=== PATIENT | male | born 1975 | race Caucasian/White ===

== ENCOUNTER 2016-05-06 14:23 | Emergency (ER) | payer OTHER ==
[2016-05-06 14:29] VITALS: BP 137/91
[2016-05-06] MEDS ORDERED: Tetracaine 0.5% OPTH.SOL 15ML* BTL ONE (14:33)
[2016-05-06] MEDS ORDERED: BSS OPTH.SOL* BTL ONE (14:33)
[2016-05-06] MEDS ORDERED: Fluorescein Sodium TOPICAL* 1 MG TEST ONE (14:33)
--- NOTE | 2016-05-06 15:14 | UC ---
Eye Complaint HPI - HPI Summary HPI Summary: 40 MINUTES AGO WAS GRINDING METAL, WITH SAFETY GLASSES ON AND A SMALL PIECE OF SHEET METAL GOT INTO RIGHT EYE. - History of Current Complaint Chief Complaint: UCEye Stated Complaint: METAL SHAVING IN EYE Time Seen by Provider: 05/06/16 14:26 Hx Obtained From: Patient Onset/Duration: Sudden Onset, Lasting Minutes, Still Present Timing: Constant Severity Initially: Moderate Severity Currently: Moderate Location of Injury: Conjunctiva, Other - [place] RIGHT Character: Dull, Foreign Body Sensation Aggravating Factor(s): Light, Blinking Alleviating Factor(s): Nothing Associated Signs And Symptoms: Positive: Photophobia, Drainage (Clear) Related History: Foreign Body - Risk Factors Penetrating Injury Risk Factor: Grinding Globe Rupture Risk Factors: Negative Acute Glaucoma Risk Factors: Negative Optic Artery Occlusion Risk Factors: Negative - Allergies/Home Medications Allergies/Adverse Reactions: Allergies Allergy/AdvReac Type Severity Reaction Status Date / Time No Known Allergies Allergy Verified 05/06/16 14:28 Home Medications: Home Medications Esomeprazole Magnesium [Nexium] 40 mg PO 05/06/16 [History] PMH/Surg Hx/FS Hx/Imm Hx Previously Healthy: Yes Endocrine History Of: Denies: Diabetes, Thyroid Disease Cardiovascular History Of: Denies: Cardiac Disorders, Hypertension Respiratory History Of: Denies: COPD, Asthma GI/ History Of: Denies: Ulcer - Surgical History Surgical History: None - Family History Known Family History: Negative: Blood Disorder - Social History Occupation: Employed Full-time Lives: With Family Alcohol Use: Rare Substance Use Type: None Smoking Status (MU): Heavy Every Day Tobacco Smoker Cessation Counseling: Patient Advised to Stop Review of Systems Constitutional: Negative Skin: Negative Eyes: Drainage, Eye Redness, Other - FB SENSATION RIGHT EYE ENT: Negative Respiratory: Negative Cardiovascular: Negative Gastrointestinal: Negative Genitourinary: Negative Motor: Negative Neurovascular: Negative Musculoskeletal: Negative Neurological: Negative Psychological: Negative All Other Systems Reviewed And Are Negative: Yes Physical Exam Triage Information Reviewed: Yes Appearance: Well-Appearing, No Pain Distress, Well-Nourished Vital Signs: Initial Vital Signs Temp 98.1 F 05/06/16 14:26 Pulse 89 05/06/16 14:26 Resp 18 05/06/16 14:26 BP 137/91 05/06/16 14:26 Pulse Ox 96 05/06/16 14:26 Vital Signs Reviewed: Yes Eyes: Positive: Other: - FB (SMALL METAL SPECK) REMOVED USING SWAB ; POSITIVE FLUORESCEIN UPTAKE FROM [facility]ENTER OF [place] TO 6OCLOCK. ENT Exam: Normal ENT: Positive: Normal ENT inspection, Hearing grossly normal, Pharynx normal, TMs normal Dental Exam: Normal Neck exam: Normal Neck: Positive: Supple, Nontender, No Lymphadenopathy Respiratory Exam: Normal Respiratory: Positive: Chest non-tender, Lungs clear, Normal breath sounds, No respiratory distress, No accessory muscle use Cardiovascular Exam: Normal Cardiovascular: Positive: RRR, No Murmur, Pulses Normal Abdominal Exam: Normal Abdomen Description: Positive: Nontender, No Organomegaly Musculoskeletal Exam: Normal Musculoskeletal: Positive: Strength Intact, ROM Intact Neurological Exam: Normal Psychological Exam: Normal Psychological: Positive: Normal Response To Family Skin Exam: Normal Eye Complaint Course/Dx - Differential Dx/Diagnosis Differential Diagnosis/HQI/PQRI: Conjunctivitis, Corneal Abrasion, Foreign Body Provider Diagnoses: RIGHT CORNEAL ABRASION. RIGHT CORNEAL FB SUCCESSFULLY REMOVED Discharge - Discharge Plan Condition: Stable Disposition: HOME Prescriptions: Polymyx/Trimethoprim OPTH* [Polytrim OPHTH*] 1 drop RIGHT EYE Q3H #1 btl Patient Education Materials: Corneal Abrasion (ED), Eye Foreign Body (ED) Referrals: [facility] [place] PHYSICIAN REFERRAL [Outside] David Meier MD [Medical Doctor] -
== END 2016-05-06 15:12 | disposition home or self-care (01) ==
LOC: UCEAST 14:23
DX: T15.01XA Foreign body in cornea, right eye, initial encounter (principal); W31.1XXA Contact with metalworking machines, initial encounter; Y93.89 Activity, other specified; Y92.9 Unspecified place or not applicable; F17.210 Nicotine dependence, cigarettes, uncomplicated
CPT/HCPCS: 99202; A9270-GY; G0463